=== PATIENT | female | born 1995 | race Caucasian/White ===

== ENCOUNTER 2018-03-13 20:17 | Emergency (ER) | payer OTHER ==
[~2018-03-13] VITALS: Ht 165.1 cm; Wt 97.5 kg
[2018-03-13 20:51] LABS: ABSOLUTE BASOPHILS 0.1 thou/uL (0.0-0.2); ABSOLUTE EOSINOPHILS 0.3 thou/uL (0.0-0.7); ABSOLUTE LYMPHOCYTES 2.7 thou/uL (0.8-5.3); ABSOLUTE MONOCYTES 0.7 thou/uL (0.0-1.2); ABSOLUTE NEUTROPHILS 6.6 thou/uL (1.6-8.1); HEMATOCRIT 37.5 % (37.0-47.0); LYMPHOCYTES 25.7 %; MCH 28.3 pg (26.0-34.0); MCHC 34.7 g/dL (28.0-37.0); MCV 81.7 fL (80.0-100.0); MONOCYTES 6.4 %; MPV 7.4 fl. (7.2-11.1); NUCLEATED RBCS 0 /100WBC; PLATELET COUNT* 236 thou/uL (150-400); POLYS 63.9 %; RBC 4.59 mil/uL (4.20-5.00); RDW-CV 13.5 % (10.5-14.5); WBC 10.4 thou/uL (4.0-11.0)
[2018-03-13 21:03] LABS: ANION GAP 6 mmol/L (7-16); BUN 13 mg/dL (7-18); CALCIUM 8.6 mg/dL (8.5-10.1); CHLORIDE 105 mmol/L (98-107); CO2 30 mmol/L (21-32); CREATININE 0.9 mg/dL (0.6-1.3); GLUCOSE 116 mg/dL (70-99); POTASSIUM 3.4 mmol/L (3.5-5.1); SODIUM 141 mmol/L (136-145)
[2018-03-13 21:07] LABS: ALBUMIN 3.5 g/dL (3.4-5.0); ALKALINE PHOSPHATASE 112 U/L (46-116); LIPASE 147 U/L (73-393); SGOT 13 U/L (15-37); SGPT 18 U/L (30-65); TOTAL BILIRUBIN 0.3 mg/dL (<0.1-1.0); TOTAL PROTEIN 7.2 g/dL (6.4-8.2); TROPONIN-I LEVEL <0.06 ng/mL (<0.06)
[2018-03-13] MEDS ORDERED: IBUPROFEN 800800 MG PO (21:42)
[2018-03-13] MEDS ORDERED: ULTRAM 50MG TAB50 MG PO (22:24)
[2018-03-13 22:33] VITALS: BP 120/71
--- NOTE | 2018-03-14 11:41 | EKG ---
[place] [address] ELECTROCARDIOGRAM REPORT Name: TAM CARRANZA [id number] Admission: 03/13/18 Attend Phys: Discharge: 03/13/18 Date of : [birth year] Report #: [id number] THIS REPORT FOR: //name// [facility] ED Test Date: 2018-03-13 Test Time: 20:22:42 Pat Name: TAM CARRANZA Department: Room: Gender: F Screen Tacker: BRISEYDA : 1995 Requested By: Eulogio Barry Order Number: [id number] MD: Louie Roy Measurements Intervals [place] Rate: 105 P: 61 [place]: 133 QRS: -2 QRSD: 96 T: 40 QT: 339 QTc: 449 Interpretive Statements Sinus tachycardia Minimal ST depression, lateral leads No previous ECG available for comparison Electronically Signed On 03-14-2018 11:41:27 CDT by Louie Roy [email or web address] <ELECTRONICALLY SIGNED> By: Louie Roy MD, [facility] 03/14/18 1141 21 21 Louie Roy MD, FAC /EPI
== END 2018-03-13 22:35 | disposition home or self-care (01) ==
LOC: M.ERS 20:17
PROVIDERS: Emergency Medicine
DX: R07.9 Chest pain, unspecified (principal)